=== PATIENT | male | born 2005 | race Caucasian/White ===

== ENCOUNTER 2024-12-12 16:34 | Emergency (ER) | payer OTHER, SELFPAY ==
[2024-12-12 17:11] VITALS: BP 126/64; PULSE 99; RESP 18; TEMP 37.2; O2SAT 99; BMI 20.8
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
== END 2024-12-12 20:13 | disposition home or self-care (01) ==
PROVIDERS: Emergency Provider Family Medicine; PCP Family Medicine
DX: M25.511 Pain in right shoulder (principal); S39.012A Strain of muscle, fascia and tendon of lower back, initial encounter; S60.221A Contusion of right hand, initial encounter; V19.3XXA Pedal cyclist (driver) (passenger) injured in unspecified nontraffic accident, initial encounter
CPT/HCPCS: 72125; 72131; 73030; 73080; 73110; 73130; 99284